=== PATIENT | female | born 1990 | race African-American/Black ===

== ENCOUNTER 2023-09-17 16:35 | Emergency (ER) | payer MEDICAID ==
[~2023-09-17] VITALS: Ht 154.9 cm; Wt 105.2 kg
[2023-09-17 19:20] VITALS: BP 111/71; PULSE 89; RESP 16; TEMP 98.1; O2SAT 98
[2023-09-17] MEDS ORDERED: CYCL-839 PO (21:25)
[2023-09-17] MEDS ORDERED: IBUP-1454 PO (21:25)
[2023-09-17] MEDS: METHOCARBAMOL 500 MG TAB PO ONE (22:43)
[2023-09-17] MEDS: KETOROLAC TROMETH 60MG/2ML VIAL IM ONE (22:44)
[2023-09-17] MEDS: HYDROcodone-ACET 5/325MG TAB PO ONE (22:44)
== END 2023-09-17 23:04 | disposition home or self-care (01) ==
LOC: ER 16:35
DX: M62.838 Other muscle spasm (principal); M54.2 Cervicalgia; E11.9 Type 2 diabetes mellitus without complications
CPT/HCPCS: 72125; 96372; 99285; J1885